=== PATIENT | female | born 1975 | race Caucasian/White ===

== ENCOUNTER 2022-10-02 03:24 | Emergency (ER) | payer SELFPAY ==
[~2022-10-02] VITALS: Ht 167.6 cm; Wt 77.1 kg
[2022-10-02 03:41] VITALS: BP_SYST 114
[2022-10-02] MEDS ORDERED: predniSONE 20 MG TABLET PO ONE (04:00)
[2022-10-02] MEDS ORDERED: EPINEPHRINE HCL/PF 1 MG/ML AMP IM ONE (04:00)
[2022-10-02] MEDS ORDERED: CETI10CA PO (04:07)
[2022-10-02] MEDS ORDERED: PRED50TA PO (04:07)
[2022-10-02 05:00] VITALS: BP_SYST 98
== END 2022-10-02 05:00 | disposition home or self-care (01) ==
LOC: SED 03:24
DX: L50.0 Allergic urticaria (principal); R21 Rash and other nonspecific skin eruption; Z79.899 Other long term (current) drug therapy
CPT/HCPCS: 99283; 96372; J7512; J0171